=== PATIENT | female | born 1965 | race Hispanic/Latino ===

== ENCOUNTER 2019-08-06 07:19 | Day surgery (SDC) | payer OTHER ==
[~2019-08-06 07:19] MED LIST: SODIUM CHLORIDE 0.9% 1000 ML 1,000 ML IV SCH
[2019-08-06] MEDS ORDERED: WATER FOR IRRIG STERILE 1,000 ML BOTTLE ONE (07:42)
[2019-08-06] MEDS ORDERED: WATER FOR IRRIG STERILE 250 ML BOTTLE IR ONE (07:42)
--- NOTE | 2019-08-06 08:12 | Anesthesia Consultation ---
Anesthesia Consult and Med Hx Date of service: 08/06/19 - Airway Anesthetic Teeth Evaluation: Good ROM Head & Neck: Adequate Mental/Hyoid Distance: Adequate Mallampati Class: Class II Intubation Access Assessment: Probably Good - Pre-Operative Health Status ASA Pre-Surgery Classification: ASA3 Proposed Anesthetic Plan: MAC - Pulmonary Hx Smoking: Yes (Quit; 2007) - Cardiovascular System Hx Heart Murmur: Yes (Mild Mitral Valve Prolapse; Cardiac clearance ) - Endocrine Hx Liver Disease: Yes (Hyperlipidemia ) - Other Systems Hx Cancer: Yes (Breast cancer)
--- NOTE | 2019-08-06 08:13 | Anesthesia Day of Surgery ---
Anesthesia Day of Surgery - Day of Surgery Patient Examined: Yes Patient H&P Reviewed: Yes Patient is NPO: Yes Beta Blockers: No
[2019-08-06] MEDS ORDERED: PROPOFOL 200 MG/20 ML VIAL IV ONE ×2 (08:15)
--- NOTE | 2019-08-06 08:51 | Procedure Note ---
Date of procedure: 08/06/19 Pre-op diagnosis: Colon Polyp Screening/ P/H/O Cancer (Breast Cancer (R)) Post-op diagnosis: other (No Colon Polyps noted/Scattered Diverticular Disease/Minor,Internal Hemorrhoid) Procedure: Colonoscopy Anesthesia: MAC Surgeon: FERNANDO VEGA Estimated blood loss: none Pathology: none Condition: stable Disposition: same day (Encourage fiber intake; resume home medication and follow up in 1 to 2 weeks ([phone]).)
--- NOTE | 2019-08-06 09:08 | Operative Report ---
PROCEDURE: Colonoscopy. INDICATIONS: This is a 54-year-old white female with a prior history of breast cancer involving the right breast for which she has had mastectomy as well as chemotherapy and radiation. Colonoscopy was done as part of colon polyp screening. This is her first colonoscopy. DESCRIPTION OF PROCEDURE: The procedure was done after getting informed consent with MAC anesthesia. Initial rectal exam was unremarkable. Instrument was passed through the rectum onto the cecum, which was identified with the ileocecal valve and appendiceal orifice. Visualization was good. There were scattered diverticula noted throughout the proximal, transverse and the left colon. The cecum, ascending colon, transverse colon, descending colon, and sigmoid showed scattered diverticula throughout, but there was no evidence of any colon polyps or any evidence of colitis and the rectum showed minor internal hemorrhoid on the retroverted view. There was no bleeding associated with the procedure. No complications associated with the procedure. Procedure was done in the GI lab with assistance of the GI lab team, which included RN, Heidy Lemus, laverne Dave and with assistance of anesthesia. ASSESSMENT: Colon polyp screening, past history of breast cancer involving the right breast, status post surgery, chemotherapy and radiation. No colon polyps noted. Scattered diverticular disease, minor internal hemorrhoid. The patient will be encouraged to take fiber supplements. Resume home medication and follow up in the office in 1-2 weeks' time. JOB# [id number] MAGUI/BISI
[2019-08-06 09:11] VITALS: BP 126/77
--- NOTE | 2019-08-06 10:18 | Post Anesthesia Evaluation ---
- Post Anesthesia Evaluation Patient Participated: Yes Airway Patent: Yes Stable Respiratory Function: Yes Nausea/Vomiting: No Temp > 96.8F: Yes Pain Manageable: Yes Adequeate Hydration: Yes Anesthesia Complications: No Block Receding Appropriately: Not Applicable Patient on Ventilator: No
== END 2019-08-06 07:20 | disposition home or self-care (01) ==
LOC: GIO 07:19
DX: Z12.11 Encounter for screening for malignant neoplasm of colon (principal); K57.30 Diverticulosis of large intestine without perforation or abscess without bleeding; K64.8 Other hemorrhoids; E78.5 Hyperlipidemia, unspecified; Z85.3 Personal history of malignant neoplasm of breast; Z87.891 Personal history of nicotine dependence; Z79.899 Other long term (current) drug therapy; Z90.710 Acquired absence of both cervix and uterus; Z98.890 Other specified postprocedural states
CPT/HCPCS: 45378; J2704; J7030